=== PATIENT | male | born 1955 | race African-American/Black ===

== ENCOUNTER 2017-01-19 08:18 | Emergency (ER) | payer OTHER ==
[~2017-01-19] VITALS: Ht 177.8 cm; Wt 88.7 kg
[2017-01-19] MEDS ORDERED: PRAVACHOL40 MG PO (08:27)
[2017-01-19 09:52] LABS: ADD MIUA? YES; BILIRUBIN NEGATIVE; BLOOD SMALL; COLOR STRAW ((YELLOW)); GLUCOSE (STRIP) >=500; KETONES 20; LEUKOCYTES SMALL; NITRITE NEGATIVE; PROTEIN (STRIP) 30; SPECIFIC GRAVITY 1.026 (1.000-1.030); UROBILINOGEN 0.2 MG/DL (0.2-1.0)
[2017-01-19 10:01] LABS: BACTERIA NONE SEEN /HPF; EPITHELIAL CELLS RARE /HPF; MUCUS TRACE /LPF; RED BLOOD CELLS 0-5 /HPF (0-5); UCUL ADDED? YES; WHITE BLOOD CELLS 20-30 /HPF (0-5)
[2017-01-19] MEDS ORDERED: CIPRO500 MG PO (10:41)
[2017-01-19] MEDS ORDERED: MOTRIN800 MG PO (10:41)
[2017-01-19 10:57] VITALS: BP 165/94
== END 2017-01-19 10:58 | disposition home or self-care (01) ==
LOC: EME 08:18
PROVIDERS: Emergency Medicine
DX: S20.219A Contusion of unspecified front wall of thorax, initial encounter (principal); S20.229A Contusion of unspecified back wall of thorax, initial encounter; N39.0 Urinary tract infection, site not specified; W23.0XXA Caught, crushed, jammed, or pinched between moving objects, initial encounter; Y93.89 Activity, other specified; Y99.0 Civilian activity done for income or pay; I10 Essential (primary) hypertension; E11.9 Type 2 diabetes mellitus without complications; E78.00 Pure hypercholesterolemia, unspecified
CPT/HCPCS: 71020; 72050; 72100; 81003; 87086; 99281; 99283

== ENCOUNTER 2017-08-21 18:14 | Emergency (ER) | payer OTHER ==
[~2017-08-21] VITALS: Ht 172.7 cm; Wt 88.7 kg
[~2017-08-21 18:14] MED LIST: CIPRO500 MG PO; MOTRIN800 MG PO; PRAVACHOL40 MG PO
[2017-08-21 21:02] VITALS: BP 181/93
== END 2017-08-21 21:02 | disposition home or self-care (01) ==
LOC: EME 18:14
DX: N43.3 Hydrocele, unspecified (principal); I10 Essential (primary) hypertension
CPT/HCPCS: 76870; 99281; 99284